=== PATIENT | female | born 1995 | race Caucasian/White ===

== ENCOUNTER → 2016-07-24 | Outpatient (CLI) | payer BC ==
[~2016-07-24] MED LIST: FLUC150T PO; RIZA10TA18 PO; SUMA25TA12 PO
[2016-07-24 08:38] LABS: PREG INTERNAL NEGATIVE QC NEG CLEAR BACKGROUND; PREG INTERNAL POSITIVE QC POS CONTROL LINE
== END | disposition home or self-care (01) ==
LOC: MERGE 08:10 → C.LAB1850 08:10
PROVIDERS: ATTEND Obstetrics & Gynecology
DX: N93.9 Abnormal uterine and vaginal bleeding, unspecified (principal)

== ENCOUNTER → 2017-02-18 | Outpatient (CLI) | payer BC ==
[2017-02-22 10:37] LABS: CHLAMYDIA TRACH RNA*** NOT DETECTED (NOT DETECTED); GC (NEIS GONORRHOEAE)RNA** NOT DETECTED (NOT DETECTED)
== END | disposition home or self-care (01) ==
LOC: MERGE 17:27 → C.LABSPEC 17:27
PROVIDERS: ATTEND Physician Assistant
DX: N92.6 Irregular menstruation, unspecified (principal)

== ENCOUNTER → 2017-06-10 | Outpatient (CLI) | payer BC ==
[2017-06-15 07:05] LABS: CHLAMYDIA TRACH RNA*** NOT DETECTED (NOT DETECTED); GC (NEIS GONORRHOEAE)RNA** NOT DETECTED (NOT DETECTED)
== END | disposition home or self-care (01) ==
LOC: C.LABSPEC 14:34
PROVIDERS: ATTEND Physician Assistant
DX: Z01.419 Encounter for gynecological examination (general) (routine) without abnormal findings (principal)

== ENCOUNTER 2023-10-05 09:33 | Inpatient (IN) ==
[2023-10-05] MEDS ORDERED: LIDOCAINE 1% LOCAL 20 ML VIAL INFIL PRN (10:25)
--- NOTE | 2023-10-05 10:38 | History & Physical Report ---
Date of Service October 05, 2023 Assessment & Plan (1) Two vessel umbilical cord, antepartum: Plan: Kathy is a 28-year-old G1, P0 currently at 39 weeks 1 day gestational age presents in labor. 1. Fetus: Category 1 tracing 2. Labor: Progressing spontaneously will continue to monitor and augment as needed 3. GBS negative (2) Supervision of normal first : (3) Normal labor: History of Present Illness Primary Care Provider: AIDA Dewitt Kathy is a 28-year-old G1, P0 currently at 39 weeks 1 day gestational age presents in labor. Reporting regular painful contractions. Denying leakage of fluid or vaginal bleeding. Good movement. complicated by two- vessel cord. OB Labs: Blood Type A Positive 03/05/23 Antibody Screen NEGATIVE 03/05/23 Hemoglobin 12.8 g/dl (12.0-16.0) 07/20/23 Hematocrit 38.4 % (37.0-47.0) 07/20/23 Mean Corpuscular Volume 85.7 fL (80.0-100.0) 03/05/23 Platelet Count 214 K/uL (130-400) 03/05/23 Rubella IgG Antibody Immune (Immune) 03/05/23 Rapid Plasma Reagin Nonreactive (Nonreactive) 03/05/23 Hepatitis B Surface Antigen. NON-REACTIVE (NON-REACTIVE) 03/05/23 Hepatitis C Antibody (EIA) NON-REACTIVE (NON-REACTIVE) 03/05/23 HIV (1&2) Ag and Ab Confirmation NON-REACTIVE (NON-REACTIVE) 03/05/23 Glucose 1 Hour 50 gm Load 78 mg/dl (70-130) 07/20/23 OB Optional Labs: Chlamydia trachomatis RNA Not Detected (NotDetected) 03/05/23 Neisseria gonorrhoeae RNA Not Detected (NotDetected) 03/05/23 Thyroid Stimulating Hormone (TSH) 1.424 uIu/ml (0.300-4.500) 06/23/22 Labs Reviewed: Declines carrier screening--mln cfdna-low risk--mln msafp declines smp Allergies Allergy/AdvReac Type Severity Reaction Status Date / Time No Known Drug Allergies Allergy Verified 09/28/23 14:42 Home Medications Medication Instructions Recorded Confirmed Type 21-iron fu-folic acid PO 02/26/23 09/28/23 History [ Complete] Patient History Medical History (Updated 10/05/23 @ 10:34 by Ted Gerber MD) LGSIL on Pap smear of cervix History of varicella Eczema Lymphadenopathy, inguinal Surgical History H/O breast biopsy H/O colposcopy with cervical biopsy [place] teeth extracted Family History Mother Von Willebrand disease Nephrolithiasis Kidney disease Kidney stones Unknown Nephrolithiasis Aunt Ovarian cancer paternal Father Colon cancer, Onset Age: 50 Grandfather (Maternal) Prostate cancer Other Diabetes Thyroid disorder Denies family history of Myocardial infarction Breast cancer Social History (Updated 02/26/23 @ 14:09 by Adrienne Gee) Smoking Status: Never smoker Second Hand Exposure: No; Do You Dip or Chew Tobacco: No; Hx Alcohol Use: No Hx Substance Use: No Preferred Language: Vietnamese Communication Ability: Effective Visual Impairment: Limited Hearing Ability: Normal 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 Seatbelt Use: always Sunscreen Use: Yes Assistive Devices: None Physical Exam Genitourinary: normal external appearance OB Exam Abdomen: + vertex Manual OB Exam: + cervical dilation 5 cm, + cervical effacement 90% and + station -1 OB Exam Monitor Tracing: + external FHT monitor used, + category I and + normal FHT variability Results & Data Vital Signs (Past 12 Hours) Vital Signs Temp Pulse Resp BP 10/05/23 10:16 84 10/05/23 10:16 140/93 10/05/23 10:08 107 H 10/05/23 10:08 144/93 H 10/05/23 10:06 86 10/05/23 10:06 141/88 H 10/05/23 09:56 85 10/05/23 09:56 141/88 H 10/05/23 09:55 36.8 C 10/05/23 09:52 22 10/05/23 09:52 36.8 C 10/05/23 09:46 86 151/92 H Coding Level of Care Code None Diagnoses Two vessel umbilical cord, antepartum O09.899 Encounter for supervision of normal first in third trimester Z34.03 Trimester: third trimester Normal labor O80; Z37.9 (2) Supervision of normal first Trimester: third trimester Qualified Code(s): Z34.03 - Encounter for supervision of normal first , third trimester
[2023-10-05] MEDS: LACTATED RINGER'S 1,000 ML IV PRN (10:40)
--- NOTE | 2023-10-05 10:55 | Anesthesiology Consultation ---
Date of Service October 05, 2023 Assessment & Plan (1) Encounter for pre-operative examination: Chart Review Chart Review: Acceptable Risk for Labor Epidural History Height/Weight Height: 5 ft 4 in Weight: 86.729 kg Allergies Allergy/AdvReac Type Severity Reaction Status Date / Time No Known Drug Allergies Allergy Verified 09/28/23 14:42 Medications Home Medications Medication Instructions Recorded Confirmed Last Taken 21-iron fu-folic acid PO 02/26/23 09/28/23 Unknown [ Complete] Active Medications Generic Name Dose Route Start Last Admin Trade Name Freq PRN Reason Stop Dose Admin Lactated Ringer's 1,000 mls @ 125 mls/hr 10/05/23 10:25 10/05/23 10:40 Lr IV 10/07/23 10:24 999 mls/hr .Q8H PRN Administration L&D Protocol Protocol Past Medical History Medical History LGSIL on Pap smear of cervix History of varicella Eczema Lymphadenopathy, inguinal Past Family History Family History Mother Von Willebrand disease Nephrolithiasis Kidney disease Kidney stones Unknown Nephrolithiasis Aunt Ovarian cancer paternal Father Colon cancer, Onset Age: 50 Grandfather (Maternal) Prostate cancer Other Diabetes Thyroid disorder Denies family history of Myocardial infarction Breast cancer Past Surgical History Surgical History [place] teeth extracted H/O colposcopy with cervical biopsy 2020 neg, after lgsil H/O breast biopsy 2020, left Social History Smoking Status: Never smoker Do You Dip or Chew Tobacco: No Hx Alcohol Use: No Hx Substance Use: No Physical Exam Vital Signs Last Vital Signs Temp 36.8 C 10/05/23 09:55 Pulse 84 10/05/23 10:16 Resp 22 10/05/23 09:55 BP 140/93 10/05/23 10:16 Testing Laboratory Results pending
[2023-10-05 11:05] LABS: Hematocrit (blood only) 40.8 % (37.0-47.0); Hemoglobin 13.4 g/dl (12.0-16.0); Mean Corpuscular Hemoglobin 28.8 pg (25.0-34.0); Mean Corpuscular Hgb Conc 32.8 g/dL (32.0-36.0); Mean Corpuscular Volume 87.7 fL (80.0-100.0); Mean Platelet Volume 10.7 fL (9.4-12.4); Platelet Count 219 K/uL (130-400); RDW Coefficient of Variation 12.9 % (11.5-14.5); RDW Standard Deviation 41.2 fL (36.4-46.3); Red Blood Count 4.65 M/uL (4.20-5.40); White Blood Count 14.05 K/ul (4.8-10.8)
[2023-10-05 11:22] LABS: Alanine Aminotransferase 16 U/L (7-52); Creatinine Clr Calc Pharmacy 137.3 ml/min; Est GFR (Non-African American) 120.8 ml/min
[2023-10-05] MEDS: BUPIVACAINE 0.25% PF 30 ML VIAL ONE (11:23)
[2023-10-05] MEDS: LIDOCAINE 2%/EPINEPHRINE 1:200,000 20 ML PF ONE (11:25)
[2023-10-05] MEDS: fentaNYL citrate PF 100 MCG/2 ML VIAL ONE (11:26)
[2023-10-05] MEDS: fentANYL 2 MCG/ML BUPIVacaine 0.125%-NSS 100ML BAG ONE (11:27)
[2023-10-05] MEDS ORDERED: NALOXONE HCL 1 MG in SODIUM CHLORIDE 0.9% 1,000 ML IV PRN (11:29)
[2023-10-05] MEDS ORDERED: SODIUM CHLORIDE 0.9% PF INJ 10 ML VIAL EPI PRN (11:29)
[2023-10-05] MEDS ORDERED: ROPIVACAINE 0.5% PF 5 MG/ML 20 ML VIAL EPI PRN (11:29)
[2023-10-05] MEDS ORDERED: fentANYL 2 MCG/ML BUPIVacaine 0.125%-NSS 100ML BAG EPI PRN (11:29)
[2023-10-05] MEDS ORDERED: BUPIVACAINE 0.25% PF 30 ML VIAL EPI PRN (11:29)
[2023-10-05] MEDS ORDERED: ONDANSETRON INJ 2 MG/ML 2 ML VIAL IV PRN (11:29)
[2023-10-05] MEDS ORDERED: ePHEDrine sulfate 50 MG/ML AMP IV PRN (11:29)
[2023-10-05] MEDS ORDERED: LIDOCAINE 2% MPF LOCAL 5 ML VIAL EPI PRN (11:29)
[2023-10-05] MEDS ORDERED: NALOXONE HCL 0.4 MG/1 ML VIAL/CARP IV PRN (11:29)
[2023-10-05] MEDS ORDERED: fentaNYL citrate PF 100 MCG/2 ML VIAL EPI PRN (11:29)
[2023-10-05] MEDS: BUPIVACAINE 0.25% PF 30 ML VIAL EPI STA (12:26)
[2023-10-05] MEDS: fentaNYL citrate PF 100 MCG/2 ML VIAL EPI STA (12:26)
[2023-10-05] MEDS: SODIUM CHLORIDE 0.9% PF INJ 10 ML VIAL EPI STA (12:27)
[2023-10-05] MEDS: LIDOCAINE 2%/EPINEPHRINE 1:200,000 20 ML PF EPI STA (12:27)
[2023-10-05] MEDS ORDERED: HYDROCORTISONE ACETATE 25 MG SUPP PR PRN (15:56)
[2023-10-05] MEDS ORDERED: OXYTOCIN 30 UNITS/NSS 30 UNITS/500 ML BAG IV PRN (15:56)
[2023-10-05] MEDS ORDERED: ACETAMINOPHEN 325 MG TAB PO PRN (15:56)
[2023-10-05] MEDS ORDERED: bisacodyL 10 MG SUPP PR PRN (15:56)
[2023-10-05] MEDS: SODIUM CHLORIDE 0.9% PF INJ 10 ML VIAL ONE (15:57)
[2023-10-05] MEDS: ePHEDrine sulfate 50 MG/ML AMP ONE (15:57)
[2023-10-05] MEDS: OXYTOCIN 30 UNITS/NSS 30 UNITS/500 ML BAG IV PRN (15:58)
--- NOTE | 2023-10-05 16:03 | Delivery Summary ---
Supervising Physician Co-Signing Physician Notes Progressed to 10 cm dilated, 100% effaced, +2 station pushed over intact perineum with epidural anesthesia and delivered a viable female with weight and Apgars pending. Head of the delivered without difficulty and a single loose nuchal was noted which was easily reduced. Body and shoulders quickly. was noted be vigorous soon after delivery and a 1 minute delayed cord clamping was initiated. Cord was then double clamped and cut remained on maternal abdomen. Cord blood obtained. Placenta delivered intact three-vessel cord with gentle cord traction. Inspection of perineum vagina cervix was noted to be a small second-degree perineal laceration was pared with 3-0 Vicryl in traditional crown stitch. Needle sponge and instrument counts were correct at the completion of the case. Both mother and stable in the immediate postdelivery period. No complications noted and estimated blood loss 300 mL. Vaginal Delivery Summary Date of Service October 05, 2023 Vaginal Delivery Summary and 2nd Degree LAC [facility] Vaginal Delivery Charge Delivery Type Details: and 2nd Degree LAC
--- NOTE | 2023-10-05 16:16 | Anesthesia Procedure Note ---
Date of Service October 05, 2023 Anesthesia Post Epidural Note Vital Signs Vital Signs: Temp Pulse Resp BP Pulse Ox 36.8 C 98 H 22 137/65 86 L 10/05/23 09:55 10/05/23 16:03 10/05/23 09:55 10/05/23 16:03 10/05/23 15:24 Notes Mental Status: alert / awake / arousable and participated in evaluation Nausea / Vomiting: adequately controlled Pain: adequately controlled Airway Patency, RR, SpO2: stable & adequate BP & HR: stable & adequate Hydration State: stable & adequate Neuraxial Anesthesia: was administered and sensory block is resolving Anesthetic Complications: no major complications apparent Epidural: Removed without complications and With tip intact
[2023-10-05] MEDS: DIPHTHER/TETAN/PERTUS Vaccine (Tdap, Adol/Adult) 0.5mL IM ONE (18:36)
[2023-10-05] MEDS: BENZOCAINE 20% SPRY 85 APPLN/85 GM CAN EXT PRN (19:56)
[2023-10-05] MEDS: DOCUSATE SODIUM 100 MG CAP PO SCH (21:07)
[2023-10-05] MEDS: IBUPROFEN 600 MG TAB PO PRN (21:07)
--- NOTE | 2023-10-06 06:01 | Obstetrical Progress Note ---
Date of Service October 06, 2023 Assessment & Plan (1) Encounter for care after hospital delivery: Plan: 28 yo post- day 1 s/p Continue post care Feels well today. Encourage ambulation and Hgb stable, rubella immune Pain well controlled with ibuprofen Admission and Anticipated Discharge Date Admission Date: October 05, 2023 Supervising Physician Co-Signing Physician Notes Patient seen with resident and agree with the above findings and plan. Stable for discharge. Subjective 28 yo post- day 1 s/p Ambulation: ambulating normally Voiding: no voiding problems Passing Gas:: Yes Diet Tolerance:: regular diet Lochia:: Small Feeding Type: Current Pain Level: mild Resting comfortably this AM in NAD. Denies CORNEJO, CP, SOB, N/V/D, LE pain/swelling. Review of Systems Review of Systems: All systems reviewed & are unremarkable except as noted in HPI & below Physical Exam Physical Exam: General: patient resting comfortably, NAD, non-toxic in appearance, AA&O x 4, answers questions appropriately. Skin: warm, dry, intact HEENT: NC/AT, anicteric sclera, conjunctiva without injection, moist mucus membranes. Heart: +S1/S2, regular, no m/r/g Lungs: equal air entry bilaterally, no rales/rhonchi/wheezes Abd: +BS, soft, NT/ND, uterine fundus firm at umbilicus Ext: warm, no clubbing/cyanosis or edema, Loreto's neg. Neuro: nonfocal, patient AA&O x 4, speech intact, no facial droop, moving all extremities on command. Results & Data Vital Signs (Past 12 Hours) Vital Signs Temp Pulse Resp BP Pulse Ox O2 Del Method 10/06/23 04:30 36.8 C 85 18 128/86 98 Room Air 10/06/23 00:30 37.2 C 81 18 121/69 98 Room Air 10/05/23 21:00 37.0 C 92 H 18 135/88 99 Room Air Resident Activity Tracking Resident Involvement: Resident Care Provided Care Provided: OB Delivery
[2023-10-06 07:34] LABS: Hematocrit (blood only) 36.2 % (37.0-47.0); Hemoglobin 11.8 g/dl (12.0-16.0); Mean Corpuscular Hemoglobin 28.8 pg (25.0-34.0); Mean Corpuscular Hgb Conc 32.6 g/dL (32.0-36.0); Mean Corpuscular Volume 88.3 fL (80.0-100.0); Mean Platelet Volume 10.9 fL (9.4-12.4); Platelet Count 187 K/uL (130-400); RDW Coefficient of Variation 13.1 % (11.5-14.5); RDW Standard Deviation 42.6 fL (36.4-46.3); White Blood Count 13.59 K/ul (4.8-10.8)
[2023-10-06] MEDS: PRENATAL VITAMIN 1 TAB PO SCH (08:52)
[2023-10-06] MEDS: bisacodyL 5 MG TABEC PO SCH (20:28)
--- NOTE | 2023-10-07 04:01 | Obstetrical Progress Note ---
Date of Service October 07, 2023 Assessment & Plan (1) Encounter for care after hospital delivery: Plan stable doing well. will dc home, instructions reviewed. f/u 6 wk pp check, rhpos, ri, . Day #:: 2 Subjective Ambulation: ambulating normally Voiding: no voiding problems Diet Tolerance:: regular diet Lochia:: Small Feeding Type:: breast feeding no concerns Constitutional: + as per Subjective / HPI Physical Exam Constitutional WD/WN, vitals as above Respiratory normal respiratory effort, lungs clear to auscultation Cardiovascular Rate/Rhythm: regular rate and regular rhythm Gastrointestinal (Abdomen) Inspection/Auscultation: abdomen normal to inspection Percussion/Palpation: abdomen soft Fundus firm 2cm down Musculoskeletal nt calves no edema Neurologic grossly normal Psychiatric A+Ox3, euthymic affect Results & Data Vital Signs (Past 12 Hours) Vital Signs Temp Pulse Resp O2 Del Method 10/06/23 20:20 98.6 F 114 H 30 H Room Air
[2023-10-07 06:45] LABS: Hematocrit (blood only) 35.1 % (37.0-47.0); Hemoglobin 11.5 g/dl (12.0-16.0)
== END 2023-10-07 14:25 | disposition home or self-care (01) | DRG 807 ==
LOC: OPB 09:33 → 4S1 09:39 → 4E2 18:15